=== PATIENT | male | born 1995 | race Caucasian/White ===

== ENCOUNTER 2021-08-23 17:17 | Emergency (ER) | payer MEDICAID, OTHER ==
[~2021-08-23] VITALS: Ht 175.3 cm; Wt 64.0 kg
[~2021-08-23 17:17] MED LIST: LEVO-315 PO; METR-435 PO
[2021-08-23 17:27] VITALS: BP 146/90
--- NOTE | 2021-08-23 18:49 | NUR ---
PATIENT LEFT WITHOUT BEING SEEN BY AKANKSHA BENDER. NO FURTHER CARE PROVIDED FOR PATIENT.
--- NOTE | 2021-08-23 18:49 | NUR ---
CALLED 3X BY AKANKSHA BENDER, NO ANSWER
== END 2021-08-23 18:49 | disposition left against medical advice (07) ==
LOC: MED 17:17
DX: R07.81 Pleurodynia (principal); Z53.21 Procedure and treatment not carried out due to patient leaving prior to being seen by health care provider

== ENCOUNTER 2021-09-11 23:18 | Emergency (ER) | payer MEDICAID ==
--- NOTE | 2021-09-11 23:30 | NUR ---
CALLED TO TRIAGE, NO ANSWER
--- NOTE | 2021-09-11 23:45 | NUR ---
CALLED TO TRIAGE, NO ANSWER
--- NOTE | 2021-09-12 | NUR ---
CALLED TO TRIAGE, NO ANSWER, [facility]BS
== END 2021-09-11 23:30 | disposition left against medical advice (07) ==
LOC: MED 23:18
DX: S69.91XA Unspecified injury of right wrist, hand and finger(s), initial encounter (principal); Z53.21 Procedure and treatment not carried out due to patient leaving prior to being seen by health care provider; X58.XXXA Exposure to other specified factors, initial encounter; Y92.89 Other specified places as the place of occurrence of the external cause; Y93.89 Activity, other specified; Y99.8 Other external cause status